=== PATIENT | female | born 1960 | race Two or more races ===

== ENCOUNTER 2016-12-04 15:35 | Emergency (ER) | payer BC ==
[~2016-12-04] VITALS: Ht 154.9 cm; Wt 81.2 kg
[2016-12-04 15:51] VITALS: BP 137/62
[2016-12-04] MEDS ORDERED: LIDOCAINE 1%-EPI 1:100,000 50 ML VIAL IJ ONE (17:00)
== END 2016-12-04 17:16 | disposition home or self-care (01) ==
LOC: ER 15:40
DX: L02.214 Cutaneous abscess of groin (principal); I10 Essential (primary) hypertension
CPT/HCPCS: A4606; A6402; A6403; J3490; Z7610